=== PATIENT | male | born 2000 | race Caucasian/White ===

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

== ENCOUNTER 2021-06-10 09:40 | Emergency (ER) | payer BC, OTHER ==
[2021-06-10 09:46] VITALS: RESP 18
[2021-06-10] MEDS ORDERED: GELATIN SPONGE,ABSORB (SMALL) 1 EACH SPONGE TOPICAL STA (10:17)
[2021-06-10] MEDS ORDERED: DIPH,PERTUS(ACELL)TETVAC-LF 0.5 ML VIAL IM ONE (10:17)
[2021-06-10] MEDS ORDERED: IBUPROFEN 600 MG TAB PO STA (10:17)
--- NOTE | 2021-06-10 10:21 | ED ---
General Adult HPI - General Chief complaint: Extremity Injury, Upper Stated complaint: [facility]-hand injury Time Seen by Provider: 06/10/21 10:00 Source: patient, RN notes reviewed Mode of arrival: ambulatory Limitations: no limitations - History of Present Illness Initial comments: 20-year-old male presents to the emergency room for a chief complaint of left third digit pain. Patient states that he was at work and was using a hydraulic machine. States he felt a cramp his finger and pulled his hand away as quickly as he could but injured the tip of his finger. Patient states he has not looked up his finger. Patient states it is painful. Patient does not believe tetanus is up-to-date. Patient denies any other injuries.Patient has no other compla ints at this time including shortness of breath, chest pain, abdominal pain, nausea or vomiting, headache, or visual changes. - Related Data Home Medications Medication Instructions Recorded Confirmed Pantoprazole Sodium [Protonix] 20 mg PO DAILY PRN 06/10/21 06/10/21 Sertraline [Zoloft] 100 mg PO HS 06/10/21 06/10/21 Previous Rx's Medication Instructions Recorded Cephalexin [Keflex] 500 mg PO Q6HR 10 Days #40 cap 06/10/21 Allergies Allergy/AdvReac Type Severity Reaction Status Date / Time peanut Allergy Anaphylaxis Verified 06/10/21 10:21 Review of Systems ROS Statement: Those systems with pertinent positive or pertinent negative responses have been documented in the HPI. ROS Other: All systems not noted in ROS Statement are negative. Past Medical History Past Medical History: GERD/Reflux History of Any Multi-Drug Resistant Organisms: None Reported Past Surgical History: Ear Surgery, Orthopedic Surgery Past Psychological History: No Psychological Hx Reported Smoking Status: Never smoker Past Alcohol Use History: None Reported Past Drug Use History: None Reported General Exam Limitations: no limitations General appearance: alert, in no apparent distress Head exam: Present: atraumatic Eye exam: Present: normal appearance, PERRL, EOMI. Absent: scleral icterus, conjunctival injection ENT exam: Present: normal exam, mucous membranes moist Neck exam: Present: normal inspection, full ROM Respiratory exam: Present: normal lung sounds bilaterally. Absent: respiratory distress, wheezes Cardiovascular Exam: Present: regular rate, normal rhythm, normal heart sounds GI/Abdominal exam: Present: soft, normal bowel sounds. Absent: distended, tenderness Extremities exam: Present: full ROM (L third digit), normal capillary refill (> 2 seconds in all digits), other (patient has nail avulsion of the third finger L hand with superficial avulsion of the radial aspect of the distal phalanx) Neurological exam: Present: alert Course Vital Signs 06/10/21 09:42 Temperature 98.3 F Pulse Rate 61 Respiratory 18 Rate Blood Pressure 151/84 O2 Sat by Pulse 99 Oximetry Medical Decision Making - Medical Decision Making X-ray of the left finger shows open displaced fracture through the radial 5% distal aspect of the third distal phalanx wound was irrigated thoroughly. Gelfoam was applied and wrapped. Patient will be put on Keflex, was given Ancef in the ER. Patient's finger was splinted. Patient will need to see orthopedics. He will return here for any worsening symptoms. Disposition Clinical Impression: Avulsion of nail bed, Open fracture Disposition: HOME SELF-CARE Condition: Good Instructions (If sedation given, give patient instructions): Finger Fracture (ED) Additional Instructions: Please clean the wound with gentle soap and water once daily. Please rewrap once daily. Take anabiotic as directed. Motrin and Tylenol for pain. You can alternate these every 3 hours. Keep hand elevated. Follow-up with orthopedics. Return to the emergency room for any worsening symptoms such as signs of infection Prescriptions: Cephalexin [Keflex] 500 mg PO Q6HR 10 Days #40 cap Is patient prescribed a controlled substance at d/c from ED?: No Referrals: Jennyfer Stahl MD [Primary Care Provider] - 1-2 days Edis Narayan DO [Doctor of Osteopathic Medicine] - 1-2 days Time of Disposition: 11:08
[2021-06-10] MEDS ORDERED: ceFAZolin 1,000 MG VIAL (IM USE) IM STA (10:36)
--- NOTE | 2021-06-10 10:57 | XR ---
EXAMINATION TYPE: XR finger LT DATE OF EXAM: 06/10/2021 COMPARISON: NONE HISTORY: Crushing injury with pain TECHNIQUE: Three views of third distal phalanx left hand. FINDINGS: There is open displaced fracture through the radial 5% distal aspect of the third distal ph alanx. Overlying gauze material is present. Curvilinear density could reflect soft tissue foreign bod y versus tiny remnant bony fragment. Joint spaces are maintained. IMPRESSION: As above.
[2021-06-10 11:50] VITALS: BP 138/72; PULSE 66; TEMP 98.2
== END 2021-06-10 11:45 | disposition home or self-care (01) ==
LOC: EC 09:40
DX: S62.633B Displaced fracture of distal phalanx of left middle finger, initial encounter for open fracture (principal); K21.9 Gastro-esophageal reflux disease without esophagitis; Z23 Encounter for immunization; Z91.010 Allergy to peanuts; W23.0XXA Caught, crushed, jammed, or pinched between moving objects, initial encounter
CPT/HCPCS: 99283; 96372; 90471; 73140; 90715; J0690